=== PATIENT | male | born 1980 | race Caucasian/White ===

== ENCOUNTER 2017-03-09 21:16 | Emergency (ER) | payer OTHER ==
[2017-03-09 21:26] VITALS: BP 125/90; PULSE 85; TEMP 97.5; BMI 24.4
--- NOTE | 2017-03-09 21:52 | PDOC ---
History of Present Illness - General Chief Complaint: Laceration Stated Complaint: LAC R KNEE AREA Time Seen by Provider: 03/09/17 21:40 History Source: Patient Exam Limitations: No Limitations - History of Present Illness Initial Comments: 03/09/17 22:01 This is a 36-year-old male who comes in for evaluation of a laceration of his right leg. Patient was using a razor knife to cut open some tape when it slipped and he accidentally lacerated his leg. Patient's last tetanus was within 5 years. Patient is otherwise healthy. PAST MEDICAL HISTORY: no significant history PAST SURGICAL HISTORY: no significant history FAMILY HISTORY: no pertinant history SOCIAL HISTORY: Pt lives with family and is employed. MEDICATIONS: reviewed ALLERGIES: As per nursing notes Review of Systems General: No fevers or chills, no weakness, no weight loss HEENT: No change in vision. No sore throat,. No ear pain CardioVascular: No chest pain or shortness of breath Respiratory:No cough, or wheezing. Gastrointestinal: no nausea, vomitting, diarrhea or constipation, No rectal bleeding Genitourinary: No dysuria, hematuria, or frequency Musculoskeletal: No joint or muscle pain or swelling Neurologic: No headache, vertigo, dizziness or loss of consciousness Psychiatric: nor depression Skin: No rashes or easy bruising, laceration as per history of present illness Endocrine: no increased thirst or abnormal weight change Allergic: no skin or latex allergy All other systems reviewed and normal GENERAL: The patient is awake, alert, and fully oriented, in no acute distress. HEAD: Normal with no signs of trauma. EYES: Pupils equal, round and reactive to light, extraocular movements intact, sclera anicteric, conjunctiva clear. EXTREMITIES: Normal range of motion, no edema. Right inner leg just distal to the knee there is a superficial 3 cm laceration with no active bleeding neurovascular distal is intact. NEUROLOGICAL: Normal speech, normal gait. PSYCH: Normal mood, normal affect. SKIN: Warm, Dry, normal turgor, no rashes or lesions noted. Patient's laceration was repaired by the plastic surgeon Dr. Tse as he was in the emergency room and patient requested that he repair the laceration. Past History - Past Medical History Allergies/Adverse Reactions: Allergies Allergy/AdvReac Type Severity Reaction Status Date / Time No Known Allergies Allergy Verified 11/12/13 12:24 Home Medications: Ambulatory Orders NK [No Known Home Medication] 03/09/17 Asthma: Yes ( A CHILD) - Immunization History Td Vaccination: Yes - Psycho/Social/Smoking Cessation Hx Anxiety: No Suicidal Ideation: No Smoking Status: No Smoking History: Unknown if ever smoked Have you smoked in the past 12 months: No Number of Cigarettes Smoked Daily: 0 Information on smoking cessation initiated: No Hx Alcohol Use: No Drug/Substance Use Hx: No Substance Use Type: None *Physical Exam - Vital Signs Last Vital Signs Temp Pulse Resp BP Pulse Ox 97.5 F L 85 14 125/90 100 03/09/17 21:21 03/09/17 21:21 03/09/17 21:21 03/09/17 21:21 03/09/17 21:21 *DC/Admit/Observation/Transfer Diagnosis at time of Disposition: Laceration of leg Qualifiers: Encounter type: initial encounter Laterality: right Qualified Code(s): S81.811A - Laceration without foreign body, right lower leg, initial encounter - Discharge Dispostion Disposition: HOME Condition at time of disposition: Good Admit: No - Patient Instructions Printed Discharge Instructions: DI for Laceration Repair Additional Instructions: Keep the area clean and care instructions as per the plastic surgeon. Surgical removal and follow-up instructions as per the plastic surgeon. Return to the emergency department immediately with ANY new, persistent or worsening symptoms. Continue any medications as previously prescribed by your physician. You should follow up with your primary doctor as soon as possible regarding today's emergency department visit. . Please make sure your doctor reviews the results of your emergency evaluation. Thank you for coming to the Emergency Department today for your care. It was a pleasure to see you today. Please note that your evaluation is INCOMPLETE until you follow-up with your doctor.
--- NOTE | 2017-03-09 21:57 | CONSULT ---
Consult Consult Specialty:: Plastic Surgery Reason for Consultation:: Laceration Right Medial Knee - Alcohol/Substance Use Hx Alcohol Use: No - Smoking History Smoking history: Unknown if ever smoked Have you smoked in the past 12 months: No Aproximately how many cigarettes per day: 0 Home Medications - Allergies Allergies/Adverse Reactions: Allergies Allergy/AdvReac Type Severity Reaction Status Date / Time No Known Allergies Allergy Verified 11/12/13 12:24 - Home Medications Home Medications: Ambulatory Orders NK [No Known Home Medication] 03/09/17 Physical Exam Vital Signs: Vital Signs Temperature 97.5 F L 03/09/17 21:21 Pulse Rate 85 03/09/17 21:21 Respiratory Rate 14 03/09/17 21:21 Blood Pressure 125/90 03/09/17 21:21 O2 Sat by Pulse Oximetry (%) 100 03/09/17 21:21 Assessment/Plan 36 year old male presents with laceration of the right medial knee from pocket knife. Approximately 3cm in length. Anesthetized with 1% Lidocaine with Epinephrine. Debrided of foreign material. Closed in layers, deep tissues with 4-0 Vicryl suture. Skin with 5-0 nylon interrupted sutures. Sterile dressing applied. Return to office in one week.
== END 2017-03-09 22:03 | disposition home or self-care (01) ==
LOC: FER 21:16
PROC: 0JQN0ZZ Repair Right Lower Leg Subcutaneous Tissue and Fascia, Open Approach (ICD-10-PCS; principal; 2017-03-09)
DX: S81.811A Laceration without foreign body, right lower leg, initial encounter (principal); J45.909 Unspecified asthma, uncomplicated; W26.0XXA Contact with knife, initial encounter; Y93.89 Activity, other specified; Y92.9 Unspecified place or not applicable
CPT/HCPCS: 99282-25

== ENCOUNTER 2018-06-29 10:53 | Emergency (ER) | payer OTHER ==
[2018-06-29 11:16] VITALS: BP 137/100; PULSE 94; TEMP 98.5; BMI 24.3
[2018-06-29] MEDS ORDERED: SODIUM CHLORIDE 0.9% 1000 ML INFUS.BAG IV ONE (11:19)
[2018-06-29] MEDS ORDERED: ONDANSETRON 4 MG/2 ML VIAL IVPUSH ONE (11:24)
[2018-06-29] MEDS ORDERED: FAMOTIDINE 20 MG/50 ML IVPB 20 MG/50 ML MG IVPB ONE ×2 (11:25)
[2018-06-29] MEDS ORDERED: ONDANSETRON 4 MG/2 ML VIAL ONE (11:25)
--- NOTE | 2018-06-29 11:39 | PDOC ---
History of Present Illness - General Chief Complaint: Nausea/Vomiting Stated Complaint: VOMITING X 2 WEEKS Time Seen by Provider: 06/29/18 11:02 History Source: Patient Exam Limitations: No Limitations - History of Present Illness Initial Comments: 06/29/18 11:32 37-year-old male here today complaining of nausea vomiting and epigastric pain for 2 weeks. Patient states that he has been using a friend's oxycodone at times takes more than 1 pill per day he did take 1 oxycodone today denies any previous knowledge of opiate addiction or withdrawal like symptoms. He states he has also been drinking heavily for the last week during setting where up to 6 beers per day no known history of alcoholic Strahl states he takes his oxycodone for a chronic neck pain he has from previous radiculopathy denies any fevers chills no hematemesis no change to his bowel pattern no headache or vertigo no moderate factors Past History - Past Medical History Allergies/Adverse Reactions: Allergies Allergy/AdvReac Type Severity Reaction Status Date / Time No Known Allergies Allergy Verified 06/29/18 11:04 Home Medications: Ambulatory Orders Oxycodone HCl 06/29/18 Asthma: Yes ( A CHILD) COPD: No Other medical history: NECK PAIN - Immunization History Td Vaccination: Yes - Suicide/Smoking/Psychosocial Hx Smoking Status: No Smoking History: Never smoked Have you smoked in the past 12 months: No Number of Cigarettes Smoked Daily: 0 Hx Alcohol Use: Yes Drug/Substance Use Hx: Yes (OXYCODONE) Substance Use Type: None Review of Systems - Review of Systems Constitutional: No: Chills, Diaphoresis HEENTM: No: Blurred Vision Respiratory: No: Cough, Orthopnea Cardiac (ROS): No: Chest Pain, Edema ABD/GI: Yes: Nausea, Vomiting, Indigestion : No: Burning, Dysuria, Discharge Musculoskeletal: Yes: Neck Pain Integumentary: No: Sweating Neurological: No: Numbness All Other Systems: Reviewed and Negative *Physical Exam - Vital Signs Last Vital Signs Temp Pulse Resp BP Pulse Ox 98.5 F 94 H 17 137/100 96 06/29/18 11:02 06/29/18 11:02 06/29/18 11:02 06/29/18 11:02 06/29/18 11:02 - Physical Exam General Appearance: Yes: Appropriately Dressed HEENT: positive: Normal ENT Inspection Neck: positive: Trachea midline Respiratory/Chest: positive: Lungs Clear, Normal Breath Sounds Cardiovascular: positive: Regular Rhythm, Regular Rate, S1, S2 Gastrointestinal/Abdominal: positive: Normal Bowel Sounds, Flat, Soft. negative : Tender Musculoskeletal: positive: Normal Inspection. negative: CVA Tenderness, CVA Tenderness (R) Extremity: positive: Normal Capillary Refill, Normal Inspection Integumentary: positive: Normal Color, Dry, Warm Neurologic: positive: Fully Oriented, Alert, Normal Mood/Affect ED Treatment Course - LABORATORY CBC & Chemistry Diagram: 06/29/18 11:30 06/29/18 11:30 Medical Decision Making - Medical Decision Making 06/29/18 14:00 Differential diagnosis includes gastritis, pancreatitis, cholelithiasis, opiate withdrawal alcohol intoxication or alcoholic gastritis Tylenol toxicity. Patient 's abdominal exam is relatively nontender plan CBC CMP tox screen alcohol level IV fluids at diabetics and reassessment discussed with patient regarding concerns for alcohol withdrawal syndrome states he has no history of previous serious alcohol withdrawal patient is requesting to leave he states he is walking he was given option for [facility] for [facility] should he so wished phone call to his primary doctor Dr. Desai patient will require follow-up for elevated LFTs. Abdominal ultrasound was unremarkable except for a CBD which is upper limits of normal patient given GI referral for follow-up tolerating by mouth prior to discharge and states overall he feels improved educated regarding the concerns of elevated liver function tests and that this could be due to heavy alcohol use encouraged to stop drinking as it can cause liver failure *DC/Admit/Observation/Transfer Diagnosis at time of Disposition: Alcohol abuse, Transaminitis - Discharge Dispostion Disposition: HOME Condition at time of disposition: Improved - Referrals Referrals: Bro Lund MD [Staff Physician] - - Patient Instructions Printed Discharge Instructions: Alcoholic Hepatitis (Alternative Therapy), Gastritis, Alcohol Use Disorder Additional Instructions: You should follow-up with your primary care doctor Dr. Stewart return for persistent vomiting fevers abdominal pain or any concerns. He should strain from heavy alcohol use as it can cause permanent liver failure. Your liver enzymes are elevated today will need to be repeated with her primary care doctor within a few weeks. Patient also had stain from using narcotics as they can be highly addictive and lead to withdrawal symptoms such as nausea vomiting and diarrhea. She did wish to seek help such as detox from alcohol or opiate abuse he may follow-up with [facility] you can call [phone]. 2 [facility] - Post Discharge Activity
[2018-06-29 11:54] LABS: BASO % 1.3 % (0-2.0); EOS % 0.3 % (0-4.5); HEMATOCRIT 47.1 % (35.4-49); HEMOGLOBIN 16.6 GM/dl (11.7-16.9); MCH 32.9 pg (25.7-33.7); MCHC 35.2 g/dl (32.0-35.9); MEAN CELL VOLUME 93.3 fl (80-96); MEAN PLT VOLUME 8.3 fl (7.5-11.1); MONO % 7.3 % (3.8-10.2); NEUT % 63.1 % (42.8-82.8); PLATELET COUNT 292 K/MM3 (134-434); RBC 5.05 M/mm3 (4.00-5.60); RDW 11.8 % (11.9-15.9); WHITE BLOOD COUNT 6.4 K/mm3 (4.0-10.8)
[2018-06-29 12:01] LABS: ALBUMIN 4.2 g/dl (3.5-5.0); ALK PHOS 64 U/L (32-92); ANION GAP 12 MMOL/L (8-16); BILIRUBIN,TOTAL 1.4 mg/dl (0.2-1.0); BLOOD UREA NITROGEN 12 mg/dl (7-18); CALCIUM 8.9 mg/dl (8.4-10.2); CHLORIDE 101 mmol/L (98-107); CO2 26 mmol/L (22-28); CREATININE 0.9 mg/dl (0.6-1.3); GLUCOSE,RANDOM 96 mg/dl (74-106); POTASSIUM 3.5 mmol/L (3.5-5.1); SGOT/AST 73 U/L (10-42); SGPT/ALT 46 U/L (10-40); SODIUM 139 mmol/L (136-145); TOT PROT 7.5 g/dl (6.4-8.3)
[2018-06-29 12:56] LABS: LIPASE 125 U/L (73-393)
[2018-06-29 14:32] LABS: COCAINE, UR NEGATIVE ng/ml (CUTOFF=300); METHADONE, UR NEGATIVE ng/ml (CUTOFF=300); OPIATES, URI POSITIVE ng/ml (CUTOFF=300); PHENCYCLIDINE,URINE NEGATIVE ng/ml (CUTOFF=25); URINE AMPHETAMINES NEGATIVE ng/ml (CUTOFF=500); URINE BARBITURATES NEGATIVE ng/ml (CUTOFF=200); URINE BENZODIAZEPINES NEGATIVE ng/ml (CUTOFF=200)
== END 2018-06-29 14:18 | disposition home or self-care (01) ==
LOC: FER 10:53
PROC: 3E033GC Introduction of Other Therapeutic Substance into Peripheral Vein, Percutaneous Approach (ICD-10-PCS; principal; 2018-06-29)
PROC: 3E0337Z Introduction of Electrolytic and Water Balance Substance into Peripheral Vein, Percutaneous Approach (ICD-10-PCS; 2018-06-29)
DX: R74.0 Nonspecific elevation of levels of transaminase and lactic acid dehydrogenase [LDH] (principal); F10.10 Alcohol abuse, uncomplicated; G89.29 Other chronic pain
CPT/HCPCS: 36415; 76705-TC; 80053; 80307; 83690; 85025; 87389; 99283-25; J7030

== ENCOUNTER 2021-05-30 08:07 | Emergency (ER) | payer OTHER ==
[2021-05-30] MEDS ORDERED: LACTATED RINGERS SOLUTION 1,000 ML/1,000 ML INFUS.BAG IV STA (08:12)
[2021-05-30] MEDS ORDERED: ONDANSETRON 4 MG/2 ML VIAL IVPUSH ONE (08:12)
[2021-05-30 08:31] VITALS: TEMP 98.2; BMI 26.9
[2021-05-30] MEDS ORDERED: FAMOTIDINE 20 MG/50 ML IVPB 20 MG/50 ML MG IVPB ONE ×2 (08:41→08:45)
[2021-05-30] MEDS ORDERED: ONDANSETRON 4 MG/2 ML VIAL ONE (08:46)
[2021-05-30 09:29] LABS: HEMOGLOBIN 12.2 GM/dl (11.7-16.9); MCH 36.3 pg (25.7-33.7); MCHC 32.9 g/dl (32.0-35.9); MEAN CELL VOLUME 110.3 fl (80-96); MEAN PLT VOLUME 10.4 fl (7.5-11.1); PLATELET COUNT 112 10^3/uL (134-434); RBC 3.36 M/mm3 (4.00-5.60); RDW 13.9 % (11.9-15.9); WHITE BLOOD COUNT 15.1 K/mm3 (4.0-10.8)
[2021-05-30 09:37] LABS: ALBUMIN 2.4 g/dl (3.4-5.0); ALK PHOS 199 U/L (45-117); ANION GAP 33 MMOL/L (8-16); BILIRUBIN,TOTAL 23.2 mg/dl (0.2-1); CALCIUM 7.6 mg/dl (8.5-10); CHLORIDE 81 mmol/L (98-107); CO2 15 mmol/L (21-32); CREATININE 4.8 mg/dl (0.55-1.3); GLUCOSE,RANDOM 71 mg/dl (74-106); SGPT/ALT 168 U/L (13-61); SODIUM 129 mmol/L (136-145)
[2021-05-30 09:56] LABS: SGOT/AST 519 U/L (15-37)
[2021-05-30 10:02] LABS: EPITHELIAL CELLS MODERATE /hpf
[2021-05-30 10:15] LABS: MACROCYTOSIS 2+
[2021-05-30 11:36] LABS: LIPASE 168 U/L (73-393)
[2021-05-30] MEDS ORDERED: SODIUM CHLORIDE 1,000 ML IV STA ×2 (11:42→13:06)
[2021-05-30] MEDS ORDERED: LORazepam 2 MG/ML SDV VIAL IVPUSH ONE ×2 (11:43→16:03)
[2021-05-30] MEDS ORDERED: chlordiazePOXIDE HCL 25 MG CAPSULE PO ONE (11:48)
[2021-05-30 11:51] LABS: VENOUS BASE EXCESS -5.4 mmol/L (-2-2); VENOUS O2 SATURATION 54.1 % (70-80); VENOUS PCO2 33.1 mmHg (38-52); VENOUS PH 7.371 (7.310-7.410)
[2021-05-30] MEDS ORDERED: chlordiazePOXIDE HCL 25 MG CAPSULE ONE (11:52)
[2021-05-30 11:55] LABS: ACTIVATED PTT 55.2 SECONDS (25.2-36.5)
[2021-05-30 11:56] LABS: LACTIC ACID 12.4 mmol/L (0.4-2.0)
[2021-05-30 12:00] LABS: INR 2.01 (0.82-1.09); PROTHROMBIN TIME (PATIENT) 21.5 SEC (10.2-13.0)
[2021-05-30] MEDS ORDERED: CEFTRIAXONE 1,000 MG in DEXTROSE 5%-WATER - 50 ML IVPB ONE (12:54)
[2021-05-30] MEDS ORDERED: cefTRIAXone SODIUM 1 GM VIAL ONE (13:16)
[2021-05-30] MEDS ORDERED: LORazepam 2 MG/ML SDV VIAL ONE (16:06)
[2021-05-30 17:35] VITALS: BP 108/65; PULSE 116
== END 2021-05-30 17:45 | disposition short-term general hospital (02) ==
LOC: FER 08:07
PROC: 3E033NZ Introduction of Analgesics, Hypnotics, Sedatives into Peripheral Vein, Percutaneous Approach (ICD-10-PCS; principal; 2021-05-30)
PROC: 3E033GC Introduction of Other Therapeutic Substance into Peripheral Vein, Percutaneous Approach (ICD-10-PCS; 2021-05-30)
PROC: 3E0337Z Introduction of Electrolytic and Water Balance Substance into Peripheral Vein, Percutaneous Approach (ICD-10-PCS; 2021-05-30)
PROC: 3E0337Z Introduction of Electrolytic and Water Balance Substance into Peripheral Vein, Percutaneous Approach (ICD-10-PCS; 2021-05-30)
PROC: 3E033GC Introduction of Other Therapeutic Substance into Peripheral Vein, Percutaneous Approach (ICD-10-PCS; 2021-05-30)
PROC: 3E033GC Introduction of Other Therapeutic Substance into Peripheral Vein, Percutaneous Approach (ICD-10-PCS; 2021-05-30)
PROC: 3E0337Z Introduction of Electrolytic and Water Balance Substance into Peripheral Vein, Percutaneous Approach (ICD-10-PCS; 2021-05-30)
PROC: 3E033GC Introduction of Other Therapeutic Substance into Peripheral Vein, Percutaneous Approach (ICD-10-PCS; 2021-05-30)
DX: K70.10 Alcoholic hepatitis without ascites (principal)
CPT/HCPCS: 36415; 71045-TC-FY; 74176-TC; 80053; 80307; 81003; 81015; 82803; 83605; 83690; 84484; 85025; 85610; 85730; 86850; 86900; 86901; 87086; 93005; 99291; C9803; U0003; U0005